=== PATIENT | female | born 1940 | race Caucasian/White ===

== ENCOUNTER → 2020-04-17 10:53 | Outpatient (BNVA) | payer MEDICARE, SELFPAY | PROVIDERS: PCP Nurse Practitioner Women's Health; Visit Provider Student in an Organized Health Care Education/Training Program | DX: Z13.89 Encounter for screening for other disorder (principal) | CPT/HCPCS: Q3014 ==

== ENCOUNTER 2020-07-08 14:21 | Outpatient (REF) | payer MEDICARE, SELFPAY ==
--- NOTE | ~2020-07-08 | MM_ITS ---
EXAMINATION: MM SCREENING DIGITAL BREAST TOMOSYNTHESIS, BILATERAL CLINICAL INFORMATION: Screening. Asymptomatic. The lifetime risk of breast cancer based on the Tyrer-Cuzick Model is 2%. COMPARISON: Mammography: 12/31/2016, 11/21/2015 TECHNIQUE: Digital breast tomosynthesis is performed in both the craniocaudal and mediolateral oblique views along with computer-aided detection (CAD). Synthesized 2D images are generated from the tomosynthesis. FINDINGS: There are scattered areas of fibroglandular density (ACR BI-RADS breast composition Category b). There is fibronodular parenchymal pattern similar to prior studies. Scattered stable nodularity is again seen as well as bilateral ductal secretory calcifications and some round calcifications. Some fine regional calcifications inferior medial left breast are stable. There is no developing density or interval mass or architectural abnormality. No significant changes from prior studies. MM/MM tomosynthesis screening BI IMPRESSION: No significant changes from prior exams. ASSESSMENT: BI-RADS 2: Benign RECOMMENDATION: Routine annual mammography screening. This patient's information was entered into a reminder system with a target due date for their next mammogram.
== END 2020-07-08 14:22 | disposition home or self-care (01) ==
LOC: HO.MAMMO 14:21
PROVIDERS: PCP Nurse Practitioner Women's Health; Visit Provider Internal Medicine
DX: Z12.31 Encounter for screening mammogram for malignant neoplasm of breast (principal)
CPT/HCPCS: 77063; 77067

== ENCOUNTER 2020-07-28 12:41 | Outpatient (REF) | payer MEDICARE, SELFPAY ==
--- NOTE | ~2020-07-28 | MR_ITS ---
EXAMINATION: MR CERVICAL SPINE WITHOUT CONTRAST CLINICAL INFORMATION: 80-year-old with neck pain radiating to the right shoulder. COMPARISON: None TECHNIQUE: MRI of the cervical spine was obtained using routine sequences without contrast. FINDINGS: ALIGNMENT: Normal. No subluxations. CRANIOCERVICAL JUNCTION/C1-C2 ARTICULATIONS:?Intact and aligned, with mild degenerative changes at the anterior atlantodental joint. Minor degenerative changes at both the C1-C2 facet joints. VISUALIZED INTRACRANIAL STRUCTURES: Within normal range. VERTEBRAL BODIES: Normal height. BONE MARROW: No suspicious marrow replacing process. C2-C3: Disc space height is well maintained. No disc herniation. There is uncovertebral spurring on the left with moderate facet arthropathy stable in appearance, with [id number] left-sided neural foraminal stenosis, stable in appearance. C3-C4: Disc space height is well maintained. No disc herniation or significant spondylosis. There is mild facet hypertrophic degenerative change on the left stable in appearance and there is facet ankylosis on the right unchanged in appearance with no significant canal stenosis. There is mild left-sided neural foraminal stenosis stable in appearance. C4-C5: Disc space height is well maintained. Mild broad-based central disc protrusion slightly asymmetric to the right with mild flattening of the dural sac slightly more prominent on the right since previous exam without cord impingement. Ligamentum flavum thickening is slightly more prominent on current study. No significant spinal canal stenosis. There is moderate right-sided and moderate to marked left-sided facet hypertrophic change similar to the previous exam without significant neural foraminal stenosis. C5-C6: Moderate disc space height loss is noted with anterior marginal spondylosis stable in appearance. There is broad-based posterior disc osteophyte complex with effacement of the dural sac abutting the ventral aspect of the spinal cord without cord compression. There is ligamentum flavum thickening stable in appearance and there is stable mild central canal stenosis. There is bilateral uncovertebral spurring and mild facet hypertrophic change with mild left-sided and moderate to severe right-sided neural foraminal stenosis stable in appearance. C6-C7: Moderate disc space height loss is noted with Schmorl's nodes, with development of type I marrow signal changes along the endplates on the right at this level which has progressed from previous exam. Anterior marginal spondylosis is more prominent on current study and there has been progression of disc space height loss. There is broad-based posterior disc osteophyte complex with effacement of the dural sac abutting the ventral aspect of the spinal cord with ligamentum flavum thickening and moderate central spinal canal stenosis slightly progressed from previous exam. There is bilateral uncovertebral spurring and mild facet arthropathy progressed from previous exam, with moderate to severe bilateral neural foraminal stenosis stable in appearance. C7-T1: Disc space height is well maintained without disc herniation or spondylosis. There is ligamentum flavum thickening progressed from previous exam. No significant canal stenosis. There is [id number] bilateral facet arthropathy without significant neural foraminal stenosis unchanged. The cervical and visualized upper thoracic spinal cord is normal in morphology, caliber and signal intensity throughout, without focal lesion, edema or syrinx formation. MR/MR cervical spine wo con IMPRESSION: 1. 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 There is spondylosis and disc osteophyte complex with ligamentum flavum thickening without cord compression. Moderate to severe bilateral neural foraminal stenosis is stable. 2. Stable mild canal stenosis at C5-C6 with stable bilateral DJD and posterior disc osteophyte complex. 3. Stable multilevel uncovertebral and facet arthrosis.
== END 2020-07-28 12:42 | disposition home or self-care (01) ==
LOC: HO.MRI 12:41
PROVIDERS: Visit Provider Nurse Practitioner Family
DX: M54.2 Cervicalgia (principal)
CPT/HCPCS: 72141

== ENCOUNTER 2020-08-26 07:02 | Day surgery (SDC) | payer MEDICARE, SELFPAY ==
--- NOTE | ~2020-08-26 | IR_ITS ---
EXAMINATION: IR FLUOROSCOPY-GUIDED CERVICAL EPIDURAL STEROID INJECTION, C6-C7 CLINICAL INFORMATION: Neck pain radiating to right side. COMPARISON: Fluoroscopy-guided epidural injection 2008 and 2015. TECHNIQUE: Following explaining epidural injection procedure, benefits and risk, a written consent was obtained. Patient was placed on fluoroscopy table and posterior neck area was cleaned in usual sterile manner. 1% Lidocaine was injected at puncture site. A 25-gauge needle was inserted from a right paramidline approach into the posterior pleural space and 2 mL nonionic contrast was injected. After confirming contrast in the epidural space, 1 mL of 0.25% Sensorcaine and 4 mL of Celestone was injected and needle withdrawn. Complete hemostasis was achieved at the puncture site. Patient tolerated procedure extremely well. IR/IR inj epidural cerv/thor FINDINGS/IMPRESSION: Successful fluoroscopy-guided right para midline C6-C7 epidural steroid injection performed.
[2020-08-26 07:24] LABS: MANUAL DIFF FLAG NO
[2020-08-26 07:26] LABS: Basophils Absolute Auto 0.1 X10*3/uL (0.0-0.2); Basophils Percent Auto 0.9 % (0-2); Eosinophils Absolute Auto 0.3 X10*3/uL (0.0-0.4); Eosinophils Percent Auto 2.9 % (0-4); Hematocrit 45.7 % (37-47); Hemoglobin 14.9 g/dl (12.0-16.0); Imm Gran Abs Auto 0.02 X10*3/uL (0.00-0.03); Imm Gran Pct Auto 0.2 % (0.0-0.4); Lymphocytes Percent Auto 50.1 % (20-40); Mean Corpuscular HGB Conc 32.6 g/dl (31.0-35.0); Mean Corpuscular Hemoglobin 29.4 pg (27.0-33.0); Mean Corpuscular Volume 90.3 fL (80-98); Mean Platelet Volume 10.3 fL (9.4-12.3); Monocytes Absolute Auto 0.8 X10*3/uL (0.1-1.2); Monocytes Percent Auto 7.8 % (2-11); Neutrophils Absolute Auto 3.8 X10*3/uL (2.0-8.3); Neutrophils Percent Auto 38.1 % (45-73); Platelet Count 265 X10*3/uL (160-400); Red Blood Count 5.06 X10*6/uL (4.20-5.50); Red Cell Distribution Width 14.6 % (11.0-16.0); White Blood Count 9.9 X10*3/uL (4.8-10.8)
[2020-08-26 07:34] LABS: Prothrombin Time 11.8 SEC (10.8-13.0)
[2020-08-26 07:36] VITALS: BMI 31.8
[2020-08-26 07:36] LABS: Partial Thromboplastin Time 35.4 SEC (24.1-38.0)
[2020-08-26 07:50] LABS: Glucose, Whole Blood 106 mg/dL (60-115)
[2020-08-26 10:15] VITALS: BP 157/64; PULSE 76; RESP 18; TEMP 37.3; O2SAT 96
[2020-08-26 10:30] VITALS: BP 145/67; PULSE 75; RESP 16; O2SAT 95
[2020-08-26 10:44] VITALS: BP 140/61; PULSE 72; RESP 16; O2SAT 95
[2020-08-26] MEDS: Lidocaine HCl 1 % MPF 5 ML VIAL SUBCUT (10:51)
[2020-08-26] MEDS: Betamet Acet/Betamet Na Ph 30 MG/5 ML VIAL 12 MG IM (10:52)
[2020-08-26 11:00] VITALS: BP 146/67; PULSE 74; RESP 16; O2SAT 94
[2020-08-26 11:30] VITALS: BP 130/58; PULSE 71; RESP 16; TEMP 36.9; O2SAT 94
[2020-08-26 12:00] VITALS: BP 140/70; PULSE 74; RESP 16; TEMP 36.9; O2SAT 95
== END 2020-08-26 12:36 | disposition home or self-care (01) ==
PROVIDERS: Radiology Diagnostic Radiology; Visit Provider Radiology Diagnostic Radiology
PROC: 3E0R3GC Introduction of Other Therapeutic Substance into Spinal Canal, Percutaneous Approach (ICD-10-PCS; principal; 2020-08-26 08:30)
DX: M50.223 Other cervical disc displacement at C6-C7 level (principal); M15.0 Primary generalized (osteo)arthritis; Z79.899 Other long term (current) drug therapy; Z88.2 Allergy status to sulfonamides; Z88.8 Allergy status to other drugs, medicaments and biological substances; Z87.891 Personal history of nicotine dependence
CPT/HCPCS: 36415; 62321; 72275; 82947; 85025; 85610; 85730; J0702; Q9967

== ENCOUNTER → 2020-11-04 07:59 | Outpatient (BNVA) | payer MEDICARE, SELFPAY | PROVIDERS: PCP Nurse Practitioner Women's Health; Visit Provider Student in an Organized Health Care Education/Training Program | DX: M19.012 Primary osteoarthritis, left shoulder (principal) | CPT/HCPCS: 20610; 99212 ==

== ENCOUNTER → 2021-07-13 09:43 | Outpatient (BNVA) | payer MEDICARE, SELFPAY | PROVIDERS: PCP Internal Medicine; Visit Provider Internal Medicine Rheumatology | DX: M47.27 Other spondylosis with radiculopathy, lumbosacral region (principal); M47.812 Spondylosis without myelopathy or radiculopathy, cervical region; G25.0 Essential tremor; M19.049 Primary osteoarthritis, unspecified hand; Z87.19 Personal history of other diseases of the digestive system | CPT/HCPCS: 99212 ==

== ENCOUNTER → 2021-08-24 08:50 | Outpatient (BNVA) | payer MEDICARE, SELFPAY | PROVIDERS: PCP Physician Assistant; Visit Provider Internal Medicine Rheumatology | DX: M25.511 Pain in right shoulder (principal); M75.81 Other shoulder lesions, right shoulder | CPT/HCPCS: 20610; 99212 ==

== ENCOUNTER → 2022-09-21 09:51 | Outpatient (BNVA) | payer MEDICARE, SELFPAY | PROVIDERS: PCP Physician Assistant; Visit Provider Nurse Practitioner Family | DX: M54.12 Radiculopathy, cervical region (principal); M47.812 Spondylosis without myelopathy or radiculopathy, cervical region; M96.1 Postlaminectomy syndrome, not elsewhere classified; M47.816 Spondylosis without myelopathy or radiculopathy, lumbar region; M48.02 Spinal stenosis, cervical region | CPT/HCPCS: 99202 ==